=== PATIENT | male | born 1985 | race Asian ===

== ENCOUNTER 2021-12-04 13:55 | Emergency (ER) | payer OTHER ==
[2021-12-04 14:02] VITALS: BP 132/89
[2021-12-04] MEDS ORDERED: ONDANSETRON ODT 4 MG TABLET TL STA (14:12)
[2021-12-04] MEDS ORDERED: PANTOPRAZOLE 40 MG TABLET PO STA (14:12)
--- NOTE | 2021-12-04 14:13 | ED Physician Documentation ---
PD HPI ABD PAIN - Stated complaint Stated Complaint: VOMITTING - Chief complaint Chief Complaint: Abd Pain - History obtained from History obtained from: Patient - Additional information Additional information: Healthy 36-year-old gentleman vomited a single time about an hour ago. It had a small amount of central blood in it. It was not completely bloody. He has tried to vomit since, but no further vomiting or blood. No history of GI bleeding or bleeding diatheses. No abdominal or chest pain. Review of Systems Constitutional: denies: Fever, Chills Nose: denies: Rhinorrhea / runny nose, Congestion Cardiac: denies: Chest pain / pressure, Palpitations Respiratory: denies: Dyspnea, Cough PD PAST MEDICAL HISTORY - Present Medications Home Medications: Ambulatory Orders Medication Instructions Recorded Confirmed Omeprazole 40 mg PO DAILY #10 cap 12/04/21 Ondansetron Odt [Zofran] 4 mg TL Q6H PRN #10 tablet 12/04/21 - Allergies Allergies/Adverse Reactions: Allergies Allergy/AdvReac Type Severity Reaction Status Date / Time No Known Drug Allergies Allergy Verified 12/04/21 14:02 PD ED PE NORMAL - Vitals Vital signs reviewed: Yes - General General: Alert and oriented X 3, No acute distress - HEENT HEENT: PERRL, EOMI - Neck Neck: Supple, no meningeal sign, No bony TTP - Cardiac Cardiac: RRR, No murmur - Respiratory Respiratory: No respiratory distress, Clear bilaterally - Abdomen Abdomen: Normal bowel sounds, Soft, Non tender - Psych Psych: Normal mood, Normal affect Results - Vitals Vitals: Vital Signs - 24 hr 12/04/21 13:59 Temperature 36.6 C Heart Rate 80 Respiratory 14 Rate Blood Pressure 132/89 H O2 Saturation 99 Oxygen O2 Source Room air PD MEDICAL DECISION MAKING - ED course ED course: Single episode of blood-tinged vomit, fairly benign from his description with normal exam here. Will prophylax with Zofran and a PPI and given close return precautions but I do not think further work-up is necessary at this time. Departure - Departure Disposition: 01 Home, Self Care Clinical Impression: Vomiting Condition: Good Record reviewed to determine appropriate education?: Yes Instructions: ED Nausea Vomiting Prescriptions: Omeprazole 40 mg PO DAILY #10 cap Ondansetron Odt [Zofran] 4 mg TL Q6H PRN #10 tablet PRN Reason: Nausea / Vomiting Comments: If you vomit heavier blood or continue to vomit multiple times throughout the day, return for reevaluation. Otherwise I am sending medications to decrease stomach acid and for any recurrent nausea to [facility] in [place]. [place] No reason you cannot return to work tomorrow.
== END 2021-12-04 14:31 | disposition home or self-care (01) ==
LOC: ED 13:55
DX: R11.10 Vomiting, unspecified (principal)
CPT/HCPCS: 99282; A9270; Q0162

== ENCOUNTER 2024-05-03 14:28 | Outpatient (CLI) | payer OTHER ==
--- NOTE | 2024-05-04 18:26 | MRI Report ---
PROCEDURE: Lumbar Spine WO INDICATIONS: LUMBAR RADICULOPATHY TECHNIQUE: Noncontrast sagittal T1 spin echo and T2 fast echo, sagittal STIR, axial T1 and T2 fast spin echo thr ough the lumbar spine. In cases with scoliosis, additional coronal T2 fast spin echo may be performe d. COMPARISON: None. FINDINGS: Image quality: Excellent. Alignment and Curvature: There is normal bony alignment. Bone Marrow: Marrow is of normal overall signal. No acute vertebral body compression fractures. Spinal Cord: Conus medullaris terminates at the L1 level. Visualized cord demonstrates normal signa l and size. Paraspinous Soft Tissues: No paravertebral masses. T12-L1: Normal in appearance. L1-L2: Normal in appearance. L2-L3: No significant abnormality is seen. L3-L4: The disc height and disc signal are well preserved. Mild disc bulge is seen. Mild facet h ypertrophy is seen. Minimal foraminal narrowing can be seen. Minimal central canal narrowing is seen. L4-L5: The disc height and disc signal are well preserved. Mild disc bulge is seen. Mild facet hyp ertrophy is seen. There is minimal left-sided and no right-sided neuroforaminal narrowing. L5-S1: No significant abnormality is seen. IMPRESSION: Mild lower lumbar spine degenerative change are seen. Reviewed by: Stef Izaguirre MD on 05/04/2024 5:25 PM [facility] Approved by: Stef Izaguirre MD on 05/04/2024 5:25 PM [facility] Station ID: [id number]
== END 2024-05-03 14:29 | disposition home or self-care (01) ==
LOC: DI 14:28
PROVIDERS: ATTEND Student in an Organized Health Care Education/Training Program
DX: M47.26 Other spondylosis with radiculopathy, lumbar region (principal)